=== PATIENT | male | born 1950 | race Caucasian/White ===

== ENCOUNTER → 2017-09-26 | Outpatient (CLI) | payer MEDICARE, OTHER ==
[~2017-09-26] MED LIST: ALP5 PO; ASCO-201 PO; ASP325 PO; HYDR-3087 PO; MULT-820 PO; TRAM200T PO; [UNRECOGNIZED DRUG - CODE] PO
[2017-09-26 09:30] LABS: PLATELET COUNT, AUTOMATED 78 K/uL (150-450)
== END ==
LOC: LAB 09:01
PROVIDERS: ATTEND Nurse Practitioner Family
DX: Z12.5 Encounter for screening for malignant neoplasm of prostate (principal); E83.119 Hemochromatosis, unspecified; M79.7 Fibromyalgia; R35.1 Nocturia
CPT/HCPCS: 36415; 82040; 82247; 82310; 82374; 82435; 82565; 82947; 84075; 84132; 84153; 84155; 84295; 84450; 84460; 84520; 85025

== ENCOUNTER → 2017-09-27 | Outpatient (CLI) | payer MEDICARE, OTHER ==
[2017-09-27 13:40] VITALS: BP 151/91
== END ==
LOC: SPU 13:32
PROVIDERS: ATTEND Nurse Practitioner Family
DX: E83.119 Hemochromatosis, unspecified (principal)
CPT/HCPCS: 99195

== ENCOUNTER → 2018-10-13 | Outpatient (CLI) | payer MEDICARE, OTHER ==
[2018-10-13 09:45] LABS: PLATELET COUNT, AUTOMATED 73 K/uL (150-450)
== END ==
LOC: LAB 08:36
PROVIDERS: ATTEND Nurse Practitioner Family
DX: R35.1 Nocturia (principal); R25.1 Tremor, unspecified; E83.119 Hemochromatosis, unspecified
CPT/HCPCS: 36415; 82040; 82247; 82310; 82374; 82435; 82565; 82947; 84075; 84132; 84153; 84155; 84295; 84450; 84460; 84520; 85025

== ENCOUNTER → 2018-10-13 | Outpatient (CLI) | payer MEDICARE, OTHER ==
[2018-10-13 13:03] VITALS: BP 153/87
[2018-10-13 13:22] VITALS: BP 133/73
== END ==
LOC: SPU 09:55
PROVIDERS: ATTEND Nurse Practitioner Family
DX: E83.119 Hemochromatosis, unspecified (principal)
CPT/HCPCS: 99195